=== PATIENT | male | born 1950 | race Caucasian/White ===

== ENCOUNTER → 2018-11-15 | Outpatient (CLI) | payer OTHER ==
[~2018-11-15] MED LIST: IOHEXOL 240 MG/ML 50ML VIAL. ONE; IOHEXOL 240 MG/ML 50ML VIAL. PO ONE; IOHEXOL 300 MG/ML 75 ML VIAL. IV ONE
--- NOTE | 2018-11-15 11:18 | RAD ---
PQRS Compliance Statement: One or more of the following individualized dose reduction techniques were utilized for this examination: 1. Automated exposure control 2. Adjustment of the mA and/or kV according to patient size 3. Use of iterative reconstruction technique CT ABD PELV W/ORAL IV CONTRAST Clinical Indication: LT inguinal hernia, lower abdomen pain. HX umbilical hernia. Pt lifted heavy object and felt burning sensation LT, can feel lump. Comparison: CT abdomen and pelvis without contrast, December 30, 2007. Technique: Helical CT imaging of the abdomen and pelvis is performed after 74 cc of Omnipaque 300 IV contrast. Oral contrast also given. Findings: Lung bases are clear. Cardiac size normal. The liver, gallbladder, spleen, pancreas, adrenal glands, abdominal aorta, and kidneys are normal. The stomach is normal. No dilated small bowel. Scattered stool in the colon. There is no colon wall thickening. Appendix or appendix remnant is normal. No abdominal adenopathy or free fluid. Urinary bladder is normal. Prostate and seminal vesicles normal. No pelvic free fluid. There are bilateral hydroceles, incompletely imaged but probably small in size. There is no inguinal hernia. There are no enlarged inguinal lymph nodes, there are benign-appearing lymph nodes. There is degenerative endplate sclerosis on the left at L4/L5. No acute bone abnormality. IMPRESSION: No acute abdominal or pelvic abnormality. There is no inguinal hernia. Electronically signed by: Jamie Andrew MD (11/15/2018 11:15 AM) [id number]
== END | disposition home or self-care (01) ==
LOC: CT 08:53
PROVIDERS: ATTEND Physician Assistant
DX: R10.32 Left lower quadrant pain (principal); N43.3 Hydrocele, unspecified
CPT/HCPCS: 74177; Q9966; Q9967